=== PATIENT | male | born 1985 | race Asian ===

== ENCOUNTER 2024-03-18 21:21 | Emergency (ER) | payer BC ==
[~2024-03-18] VITALS: Ht 177.8 cm; Wt 74.8 kg
[2024-03-18 21:25] VITALS: BP_SYST 125; PULSE 78; RESP 16; TEMP 97.9; O2SAT 96
[2024-03-18] MEDS: OXYMETAZOLINE HCL 0.05% NASAL SPRAY NS ONE (23:28)
[2024-03-18 23:30] VITALS: BP_SYST 125; PULSE 78; RESP 16; TEMP 97.9; O2SAT 98
== END 2024-03-18 23:31 | disposition home or self-care (01) ==
LOC: SED 21:21
DX: R04.0 Epistaxis (principal); R03.0 Elevated blood-pressure reading, without diagnosis of hypertension
CPT/HCPCS: 99281